=== PATIENT | male | born 1975 | race Hispanic/Latino ===

== ENCOUNTER 2020-08-01 11:17 | Emergency (ER) | payer BC ==
[2020-08-01 11:53] LABS: Absolute Lymphocytes (CBC) 1.9 K/uL (0.7-4.9); Basophils % 1.1 % (0-1.3); Hematocrit 45.2 % (39.6-49.0); Lymphocytes % 27.3 % (15.3-44.8); MPV 10.5 fL (7.6-11.3); RBC Red Blood Cell Count 4.94 M/uL (4.33-5.43)
[2020-08-01 12:03] LABS: BUN Blood Urea Nitrogen 9 mg/dL (7-18); Bicarbonate 28 mmol/L (21-32); Glucose Level 99 mg/dL (74-106); Magnesium 2.5 mg/dL (1.8-2.4); NT PRO-BNP 10 pg/mL (<125); Potassium 3.9 mmol/L (3.5-5.1); Sodium Level 137 mmol/L (136-145); Troponin (Emerg Dept Use Only) < 0.02 ng/mL (0.0-0.045)
--- NOTE | 2020-08-01 13:04 | ER ---
Nurse's Notes [facility] Name: Osmany Garcia Age: 44 yrs Sex: Male : 1975 Arrival Date: 08/01/2020 Time: 11:21 Bed 19 Private MD: Diagnosis: Hypertension;Chest pain, unspecified Presentation: 08/01 11:21 Chief complaint: EMS states: pt was at work states he was sitting at his desk and tw2 started having a fluttering has hx of afib, denies sob or chest pain. Coronavirus screen: At this time, the client does not indicate any symptoms associated with coronavirus-19. Ebola Screen: Patient denies travel to an Ebola-affected area in the 21 days before illness onset. Initial Sepsis Screen: Does the patient meet any 2 criteria? No. Patient's initial sepsis screen is negative. Does the patient have a suspected source of infection? No. Patient's initial sepsis screen is negative. Risk Assessment: Do you want to hurt yourself or someone else? Patient reports no desire to harm self or others. Note provider at bedside at this time. Onset of symptoms was August 01, 2020. 11:21 Method Of Arrival: EMS: [facility] tw2 11:21 Acuity: [facility]I 2 tw2 Triage Assessment: 11:21 General: Appears in no apparent distress. obese, well groomed, Behavior is calm, tw2 cooperative, appropriate for age. Pain: Denies pain. EENT: No signs and/or symptoms were reported regarding the EENT system. Neuro: Level of Consciousness is awake, alert, obeys commands, Oriented to person, place, time, situation. Cardiovascular: Patient's skin is warm and dry. Cardiovascular: Reports palpitations, Denies chest pain, shortness of breath. Respiratory: Airway is patent Trachea midline Respiratory effort is even, unlabored, Respiratory pattern is regular, symmetrical. GI: No signs and/or symptoms were reported involving the gastrointestinal system. Abdomen is round distended, obese. : No signs and/or symptoms were reported regarding the genitourinary system. Derm: Skin is intact, is healthy with good turgor, Skin is dry, Skin is red, Skin temperature is warm. Historical: - Allergies: : No Known Allergies; tw2 - Home Meds: :29 None [Active]; tw2 - PMHx: 11:29 Atrial Fib; tw2 - PSHx: 11:29 None; tw2 - Immunization history:: Adult Immunizations. - Social history:: Smoking status: . - Family history:: not pertinent. - Hospitalizations: : No recent hospitalization is reported. Screenin:28 Abuse screen: Denies injuries from another. Nutritional screening: No deficits noted. tw2 Tuberculosis screening: No symptoms or risk factors identified. Fall Risk None identified. Assessment: 11:30 Reassessment: see triage assessment. tw2 12:07 General: Appears in no apparent distress. comfortable. Pain: Denies pain. Neuro: Level vg1 of Consciousness is awake, alert, obeys commands, Oriented to person, place, time, situation. Cardiovascular: Patient's skin is warm and dry. Respiratory: Airway is patent Respiratory effort is even, unlabored, Respiratory pattern is regular, symmetrical. GI: No signs and/or symptoms were reported involving the gastrointestinal system. : No signs and/or symptoms were reported regarding the genitourinary system. EENT: No signs and/or symptoms were reported regarding the EENT system. Derm: Skin is intact, is healthy with good turgor. Musculoskeletal: Circulation, motion, and sensation intact. Vital Signs: 11:21 BP 174 / 108; Pulse 75; Resp 18; Temp 99.0(TE); Pulse Ox 97% on R/A; Weight 127.01 kg tw2 (R); Height 5 ft. 8 in. (172.72 cm); Pain 0/10; 11:27 BP 129 / 94; Pulse 77; Resp 17; Pulse Ox 97% on R/A; tw2 12:00 BP 138 / 99; Pulse 74; Resp 12; Pulse Ox 96% on R/A; vg1 13:23 BP 124 / 88; Pulse 72; Resp 18; Pulse Ox 98% on R/A; vg1 11:21 Body Mass Index 42.57 (127.01 kg, 172.72 cm) tw2 ED Course: 11:21 Patient arrived in ED. tw2 11:21 Placed in gown. Bed in low position. email operations manager on. Pulse ox on. NIBP on. tw2 11:22 Jay Crain MD is Attending Physician. rn 11:25 Nazanin Mendiola RN is Primary Nurse. tw2 11:27 Triage completed. tw2 11:27 Arm band placed on. tw2 11:38 Inserted saline lock: 20 gauge in right antecubital area, using aseptic technique. tw2 Blood collected. 12:01 Report given to DANIAL Celestin. tw2 12:04 Primary Nurse role handed off by Nazanin Mendiola, DANIAL vg1 12:04 Laurita Abraham, RN is Primary Nurse. vg1 12:52 Xray at bedside. vg1 13:15 COVID swab sent to lab. jp3 13:17 XRAY Chest (1 view) In Process Unspecified. EDMS 13:22 No provider procedures requiring assistance completed. IV discontinued, intact, vg1 bleeding controlled, No redness/swelling at site. Pressure dressing applied. Administered Medications: No medications were administered Outcome: 13:03 Discharge ordered by . rn 13:22 Discharged to home ambulatory. vg1 13:22 Condition: stable 13:22 Discharge instructions given to patient, Instructed on discharge instructions, follow up and referral plans. Demonstrated understanding of instructions, follow-up care. 13:24 Patient left the ED. vg1 Addendum: 08/03/2020 14:55 Addendum: COVID-19 Result: Negative result given to RN to notify pt. Other: pt call er, b d negative result given to pt by Rabia Iraheta. Signatures: Dispatcher [employer] EDMS Monique Jain Roman, MD MD rn Wise, Tara, RN RN tw2 aJrrell Baker jp3 Laurita Abraham, DANIAL RN vg1
--- NOTE | 2020-08-01 13:04 | EDPHYS ---
Physician Documentation [facility] Name: Osmany Garcia Age: 44 yrs Sex: Male : 1975 Arrival Date: 08/01/2020 Time: 11:21 Bed 19 Private MD: ED Physician Jay Crain HPI: 08/01 11:41 This 44 yrs old Male presents to ER via EMS with complaints of Palpitations. rn 11:41 The patient presents with a history of pounding. Context: The symptoms occur at rest. rn Onset: The symptoms/episode began/occurred just prior to arrival. Duration: The patient or guardian reports a single episode, that is now resolved. Modifying factors: The symptoms are aggravated by nothing. The symptoms are alleviated by nothing. Severity of symptoms: At their worst the symptoms were moderate in the emergency department the symptoms have resolved. The patient has experienced a previous episode. Reports at work, began to feel pounding of left chest, no chest pain, did not feel fast or like previous episode of afib. Now resolved, lasted approx 30 min. EMS reports elevated BP and patient not on meds for BP. No other complaints. . Historical: - Allergies: 11:29 No Known Allergies; tw2 - Home Meds: 11:29 None [Active]; tw2 - PMHx: 11:29 Atrial Fib; tw2 - PSHx: 11:29 None; tw2 - Immunization history:: Adult Immunizations. - Social history:: Smoking status: . - Family history:: not pertinent. - Hospitalizations: : No recent hospitalization is reported. ROS: 11:41 Constitutional: Negative for fever, chills, and weight loss, Eyes: Negative for injury, rn pain, redness, and discharge, Neck: Negative for injury, pain, and swelling, Cardiovascular: Negative for edema Respiratory: Negative for shortness of breath, cough, wheezing, and pleuritic chest pain, Abdomen/GI: Negative for abdominal pain, nausea, vomiting, diarrhea, and constipation, Back: Negative for injury and pain, MS/Extremity: Negative for injury and deformity, Skin: Negative for injury, rash, and discoloration, Neuro: Negative for headache, weakness, numbness, tingling, and seizure. Exam: 11:44 Constitutional: This is a well developed, well nourished patient who is awake, alert, rn and in no acute distress. Appears flushed Head/Face: Normocephalic, atraumatic. Eyes: Pupils equal round and reactive to light, extra-ocular motions intact. Lids and lashes normal. Conjunctiva and sclera are non-icteric and not injected. Cornea within normal limits. Periorbital areas with no swelling, redness, or edema. Neck: Trachea midline, no masses palpated. Supple, full range of motion without nuchal rigidity, or vertebral point tenderness. No Meningismus. Chest/axilla: Normal chest wall appearance and motion. Nontender with no deformity. No lesions are appreciated. Cardiovascular: Regular rate and rhythm. No pulse deficits. Respiratory: No increased work of breathing, no retractions or nasal flaring. Abdomen/GI: Soft, non-tender MS/ Extremity: Pulses equal, no cyanosis. Neurovascular intact. Full, normal range of motion. Equal circumference. Neuro: Awake and alert, GCS 15, oriented to person, place, time, and situation. Cranial nerves II-XII grossly intact. Motor strength 5/5 in all extremities. Sensory grossly intact. Cerebellar exam normal. 13:04 ECG was reviewed by the Attending Physician. rn Vital Signs: 11:21 BP 174 / 108; Pulse 75; Resp 18; Temp 99.0(TE); Pulse Ox 97% on R/A; Weight 127.01 kg tw2 (R); Height 5 ft. 8 in. (172.72 cm); Pain 0/10; 11:27 BP 129 / 94; Pulse 77; Resp 17; Pulse Ox 97% on R/A; tw2 12:00 BP 138 / 99; Pulse 74; Resp 12; Pulse Ox 96% on R/A; vg1 13:23 BP 124 / 88; Pulse 72; Resp 18; Pulse Ox 98% on R/A; vg1 11:21 Body Mass Index 42.57 (127.01 kg, 172.72 cm) tw2 MDM: 11:22 Patient medically screened. rn 12:59 Data reviewed: vital signs, nurses notes, lab test result(s), EKG, radiologic studies, rn plain films, and as a result, I will discharge patient. Counseling: I had a detailed discussion with the patient and/or guardian regarding: the historical points, exam findings, and any diagnostic results supporting the discharge/admit diagnosis, lab results, radiology results, the need for outpatient follow up, to return to the emergency department if symptoms worsen or persist or if there are any questions or concerns that arise at home. Response to treatment: the patient's symptoms have resolved after treatment, the patient's condition has returned to base line, the patient is now symptom free, and as a result, I will discharge patient. Special discussion: Based on the patient's history, exam, and Dx evaluation, there is no indication for emergent intervention or inpatient Tx. It is understood by the patient/guardian that if the Sx's persist or worsen they need to return immediately for re-evaluation. I discussed with the patient/guardian in detail that at this point there is no indication for admission to the hospital. It is understood, however, that if the symptoms persist or worsen the patient needs to return immediately for re-evaluation. ED course: Labs normal, ECG without ischemia, BP improved to 138/99 without treatment, will dc home with pcp and cardiology f/u. . 08/01 11:53 Order name: CBC with Automated Diff; Complete Time: 12: [facility] 08/01 11:23 Order name: XRAY Chest (1 view) 08/01 12:03 Order name: Basic Metabolic Panel; Complete Time: 12: [facility] 08/01 12:03 Order name: Troponin (Emerg Dept Use Only); Complete Time: 12:57 [facility] 08/01 12:03 Order name: NT PRO-BNP; Complete Time: 12:57 [facility] 08/01 12:03 Order name: Magnesium; Complete Time: 12:57 [facility] 08/01 13:02 Order name: COVID-19 08/01 13:15 Order name: EKG Electrocardiogram [facility] 08/01 11:23 Order name: Cardiac monitoring; Complete Time: : 08/01 11:23 Order name: EKG - Nurse/Tech; Complete Time: : 08/01 11:23 Order name: IV Saline Lock; Complete Time: 08/01 11:23 Order name: Labs collected and sent; Complete Time: : 08/01 11:23 Order name: O2 Per Protocol; Complete Time: 08/01 11:23 Order name: O2 Sat Monitoring; Complete Time: 11:38 rn EC:04 Rate is 82 beats/min. Rhythm is regular. Left axis deviation noted. QRS is positive in rn lead I and negative in lead aVF. SD interval is normal. QRS interval is normal. QT interval is normal. No Q waves. T waves are Normal. No ST changes noted. Clinical impression: NSR, LAD. Interpreted by me. Reviewed by me. Administered Medications: No medications were administered Disposition: 08/01/20 13:03 Discharged to Home. Impression: Hypertension, Chest pain, unspecified. - Condition is Stable. - Discharge Instructions: Nonspecific Chest Pain, Hypertension. - Medication Reconciliation Form, Thank You Letter, Antibiotic Education, Prescription Opioid Use form. - Follow up: Private Physician; When: As needed; Reason: Recheck today's complaints, Re-evaluation by your physician. - Problem is new. - Symptoms have improved. Signatures: Dispatcher [employer] EDMS Jay Crain MD MD rn Maury, Nazanin RN RN tw2 Laurita Abraham RN RN vg1 Corrections: (The following items were deleted from the chart) 13:24 13:03 08/01/2020 13:03 Discharged to Home. Impression: Hypertension; Chest pain, vg1 unspecified. Condition is Stable. Forms are Medication Reconciliation Form, Thank You Letter, Antibiotic Education, Prescription Opioid Use. Follow up: Private Physician; When: As needed; Reason: Recheck today's complaints, Re-evaluation by your physician. Problem is new. Symptoms have improved. rn
[2020-08-01 13:29] VITALS: TEMP 99
[2020-08-01 13:32] VITALS: BP 124/88; O2SAT 98
--- NOTE | 2020-08-01 13:32 | RAD REPORT ---
EXAM DESCRIPTION: RAD - Chest Single View - 08/01/2020 1:13 pm CLINICAL HISTORY: CHEST PAIN COMPARISON: None TECHNIQUE: AP portable chest image was obtained 08/01/2020 1:13 pm . FINDINGS: Lungs are clear. Pulmonary vasculature within normal limits. Enlarged right side mediastin um is present. This could be a summation of vasculature or indicate a mediastinal mass. Follow-up two -view chest imaging No measurable pleural effusion and no pneumothorax. No acute bony abnormality see n. No acute aortic findings suspected. Mediastinum finding was telephoned to the referring physician [id number] hours. Patient had already been di scharged with PCP and cardiology follow-up. IMPRESSION: No acute lung parenchymal process. No failure or volume overload. Right-side mediastinal silhouette is enlarged. This is probably the summation of body habitus affects , shallow inspiration and portable imaging. This is probably summation of vascular structures. Since the patient has no prior imaging at this facility, recommendation is to obtain an outpatient tw o-view chest examination. Alternatively, CT chest imaging with contrast could be performed for the mo st definitive assessment.
== END 2020-08-01 13:24 | disposition home or self-care (01) ==
LOC: ER 11:17
DX: R00.2 Palpitations (principal); I10 Essential (primary) hypertension; R07.9 Chest pain, unspecified; Z20.822 Contact with and (suspected) exposure to COVID-19; I48.91 Unspecified atrial fibrillation
CPT/HCPCS: 93005; 85025; 80048; 36415; 83735; 84484; 83880; 71045; 99284; U0002